=== PATIENT | female | born 1970 | race Caucasian/White ===

== ENCOUNTER → 2016-11-13 | Outpatient (CLI) | payer OTHER ==
[~2016-11-13] MED LIST: IBUP800T23 PO
--- NOTE | 2016-11-17 11:29 | RSPPFT ---
DATE OF PROCEDURE: 11/13/16 COMMENTS: Spirometry demonstrates an FEV1 of 1.3 at 42% of predicted, FVC of 2.5 at 66%, FEF 25-75 is 26% of predicted. Post-bronchodilator study demonstrated improvements in the FEV1 and FEF 25-75. Flow volume loops suggest an obstructive pattern. IMPRESSION: 1. Moderately severe obstructive disease. 2. Significant response to use of bronchodilator suggesting reversibility.
== END ==
LOC: HRSP 08:11
PROVIDERS: ATTEND Family Medicine
DX: R05 Cough (principal)
CPT/HCPCS: 94060